=== PATIENT | male | born 1950 | race Caucasian/White ===

== ENCOUNTER 2021-04-13 10:32 | Outpatient (CLI) | payer OTHER, SELFPAY ==
--- NOTE | ~2021-04-13 | XR_ITS ---
EXAMINATION: XR cystogram EXAM DATE: 04/13/2021 11:27 INDICATION: Malignant Neoplasm Of Prostate, Post-Op 3 Wks. Patient had outside study one week ago. TECHNIQUE: Fluoroscopy used during XR cystogram performed by Dr. Ze Castaneda Radiologist was not p resent for the imaging or procedure. Total fluoroscopic time of 0.1. The DAP for this procedure was 15.6 mGym2. A total of 34 images sent to PACS from the exam. There is no prior study for compariso n. FINDINGS: Manager Of Pmo image demonstrates corpora implants, Chou catheter, right-sided double-J ureteral s tent. Patient tolerated approximately 150 mL of Omnipaque saline distention. Upon infusing contrast, there is immediate extraluminal contrast contained in a pocket below the bladder base, most likely th e prostatectomy surgical bed. No evidence of free intraperitoneal contrast or pocket extravasating ou t of this contained region. Contrast refluxed up the right ureter as would be expected for functionin g stent. I discussed these findings with patient at conclusion of exam. IMPRESSION: Contained extraluminal contrast likely in prostatectomy bed; correlate with previous imag ing. Reviewed, dictated and finalized at location A. IMPRESSION: Contained extraluminal contrast likely in prostatectomy bed; correl ate with previous imaging.
== END 2021-04-13 10:33 | disposition home or self-care (01) ==
PROVIDERS: PCP Student in an Organized Health Care Education/Training Program; Visit Provider Urology
DX: C61 Malignant neoplasm of prostate (principal)
CPT/HCPCS: 51600; 74430; Q9967

== ENCOUNTER 2021-06-02 14:58 | Emergency (ER) | payer OTHER, SELFPAY ==
[2021-06-02 15:08] VITALS: BP 152/68; PULSE 68; RESP 16; TEMP 37.1; O2SAT 99
--- NOTE | 2021-06-02 15:41 | ED.GENADULT ---
HPI - General Adult General Chief complaint: Abdominal Pain Stated complaint: Constipation Source: patient and RN notes reviewed Limitations: no limitations History of Present Illness HPI narrative: The patient, on several medications, presents with constipation. Patient states that he was unwell with a bout of diarrhea on Thanksgiving of 4-5 bowel movements. Since then he has not had a bowel movement despite overnight using OTC preparations like fleets enema, Colace, MiraLAX. His abdominal history is remarkable that he had prior noncontributory colonoscopies, a prostatectomy in , and is on no recent antibiotics, pain medicines. No fever, vomiting, abdominal pain, and he passes scant gas. Patient declines hospital referral for blood test, imaging; discussed using [place] prep protocol with MiraLAX and Gatorade but at half dose- if he is not better in a day or 2 [after his recent interventions]. Related Data Home Medications Medication Instructions Recorded Confirmed atenolol 100 mg PO DAILY 06/02/21 06/02/21 hydrochlorothiazide 12.5 mg PO DAILY 06/02/21 06/02/21 pravastatin 20 mg PO DAILY 06/02/21 06/02/21 quinapril 40 mg PO DAILY 06/02/21 06/02/21 Allergies Allergy/AdvReac Type Severity Reaction Status Date / Time No Known Allergies Allergy Uncoded 04/04/19 10:16 Review of Systems Review of Systems: General/Constitutional: No weight loss,fever Eyes: N0: Redness,discharge Ears/Nose/Throat: No: Epistaxis,ear discharge Respiratory: Denies: Hemoptysis Gastrointestinal: No Vomiting, Bleeding-rectal Skin: No Lumps, eruption Neurologic: No Focal Weakness,Sz Hematologic: Denies: Petechiae/Purpura Psychiatric: No: Suicida ideationl All Other Systems: Reviewed and Negative [facility] Social History Social History Smoking status: Never smoker Alcohol intake: current Comments At time of signature, agree with nursing past medical, surgical, social and family history. There is no relevant family history pertinent to the presenting complaint Exam Narrative: General Appearance: Well appearing, No distress EYE: PERRLA, Conjunctiva clear Ears: External ear normal Nose: Normal nose Mouth/Throat: Normal appearing, Normal lips Neck: Supple Respiratory: Airway patent, No respiratory distress Cardiovascular: RRR Abdomen: Soft, Non-tender, No massess, No organomegaly (no rebound/ surgical signs), Hypoactive bowel sounds Musculoskeletal: Full ROM Skin: Warm, Dry Neurological: A&O x3, CN II-X intact Psychiatric: Normal mood, Normal affect Course Vital Signs Vital signs: Vital Signs Temperature 98.7 F 06/02/21 15:08 Pulse Rate 68 06/02/21 15:08 Respiratory Rate 16 06/02/21 15:08 Blood Pressure 152/68 H 06/02/21 15:08 Pulse Oximetry 99 06/02/21 15:08 Temperature 98.7 F 06/02/21 15:08 Pulse Rate 68 06/02/21 15:08 Respiratory Rate 16 06/02/21 15:08 Blood Pressure 152/68 H 06/02/21 15:08 Pulse Oximetry 99 06/02/21 15:08 Medical Decision Making Vital Signs Vital Signs: Vital Signs Temperature 98.7 F 06/02/21 15:08 Pulse Rate 68 06/02/21 15:08 Respiratory Rate 16 06/02/21 15:08 Blood Pressure 152/68 H 06/02/21 15:08 Pulse Oximetry 99 06/02/21 15:08 Temperature 98.7 F 06/02/21 15:08 Pulse Rate 68 06/02/21 15:08 Respiratory Rate 16 06/02/21 15:08 Blood Pressure 152/68 H 06/02/21 15:08 Pulse Oximetry 99 06/02/21 15:08 Discharge Plan Discharge Clinical Impression: Constipation Patient Disposition: Home, Self-Care Condition: Stable Instructions: Constipation (ED) Additional Instructions: Return if worsens per handout, try your prior colonoscopy prep routine but at half doses Consider taking a multivitamin Prescriptions: No Action atenolol 100 mg tablet 100 mg PO DAILY RF: 0 quinapril 40 mg tablet 40 mg PO DAILY RF: 0 pravastatin 20 mg tablet 20 mg PO DAILY RF: 0 hydrochlorothiazide 2
== END 2021-06-02 15:53 | disposition home or self-care (01) ==
PROVIDERS: Emergency Provider Emergency Medicine; PCP Student in an Organized Health Care Education/Training Program
DX: K59.00 Constipation, unspecified (principal)
CPT/HCPCS: 99211; G0463

== ENCOUNTER 2021-07-01 10:25 | Outpatient (CLI) | payer OTHER, SELFPAY ==
--- NOTE | ~2021-07-01 | MR_ITS ---
EXAMINATION: MR shoulder LT wo/w con DATE: 07/01/2021 11:59 INDICATION: Left shoulder pain with proximal left humeral lesion TECHNIQUE: Magnetic resonance imaging (MRI) of the left shoulder was performed without and with 20 mL Multihance intravenous contrast. Sequences included axial PD-weighted FS FSE, coronal oblique PD-tamie ghted FS FSE, coronal oblique T2-weighted FS FSE, sagittal PD-weighted FS FSE, sagittal T1-weighted S E, axial T1-weighted FS FSE and postcontrast axial, sagittal and coronal T1-weighted FS FSE. COMPARISON: None. FINDINGS: Coracoacromial arch: The acromion undersurface is curved in morphology (type II). Tiny subacromial spurs along the inferio r margin of the anterior acromion along the insertion of the otherwise normal coracoacromial ligament . There is widening of the acromioclavicular joint space which measures 8-9 mm in minimal width. Cons istent with a likely chronic acromioclavicular joint separation. The coracoclavicular ligament is nor mal. Rotator cuff: Mild supraspinatus and infraspinatus tendinopathy. There is a full-thickness tear extending AP across the anterior two thirds of the supraspinatus tendon. The portion of the tendon contributing to the c onjoined portion of the supraspinatus and infraspinatus tendons remains intact. The tear defect which overlies the apex of the humeral head measures approximately 1.8 cm medial collateral and 1.5 cm AP. There is a mild bursal sided tear measuring approximately 6 mm AP at the anterior middle facet footp late of the conjoined portion of the tendon which involves no greater than one third of the tendon th ickness. The teres minor tendon is normal. Minimal subscapularis tendinopathy without discrete tear. There is mild fatty atrophy of the supraspinatus muscle belly which demonstrates a decrease cross-sec tional area and flattened cephalad contracts the muscle belly at the supraspinatus fossa. There is al so mild to moderate fatty atrophy of the teres minor muscle belly. Biceps tendon, glenoid labrum and glenohumeral cartilage: Mild tendinopathy of the intra-articular long head biceps tendon without discrete tear. Tear involvin g the chondral labral junction and base of the labrum beginning superiorly at the 11:30 position of t he posterosuperior glenoid labrum and extending caudally along the posterior to the 6:00 position of the inferior labrum. Remainder of the cartilage along the glenoid and humeral head is normal. Fluid: Small left glenohumeral joint effusion with proportional extension of fluid into the long head biceps tendon sheath as well as into the subacromial/subdeltoid bursa through the full-thickness rotator cu ff tear. No loose osteochondral bodies. Bones: 2.1 x 1.1 x 1.7 cm T2 hyperintense lesion with linear low signal intensity sclerotic margins as evide nced on prior radiographs likely benign based on the nonaggressive appearance on the plain radiograph s. There is no significant internal enhancement in the lesion with thin linear enhancement at the per iphery which may be related to small vessels. Given the location and appearance the differential alth ough likelihood would include bone infarct, enchondroma, aneurysmal bone cyst, fibrous dysplasia or s ome combination thereof. Bone marrow signal is otherwise normal. No fracture or other pathologic huyen ow replacing process. IMPRESSION: 1. Mild supraspinatus tendinopathy with small to moderate-sized full-thickness tear involving the cri tical zone of the anterior two thirds of the supraspinatus tendon which is likely chronic given the m ild associated muscular atrophy. 2. Nonspecific mild to moderate fatty atrophy of the teres minor muscle belly without evident tendon tear which of indeterminate etiology potentially related to denervation, disuse or [place] Nair s yndrome. 3. Tear of the posterior half of the glenoid labrum beginning at the nitish
[2021-07-01 11:13] LABS: Estimated Glomerular Filt Rate > 60
== END 2021-07-01 10:26 | disposition home or self-care (01) ==
LOC: ANHIMG 10:35
PROVIDERS: PCP Student in an Organized Health Care Education/Training Program; Visit Provider Orthopaedic Surgery
DX: S43.432A Superior glenoid labrum lesion of left shoulder, initial encounter (principal); X58.XXXA Exposure to other specified factors, initial encounter
CPT/HCPCS: 73223; A9577

== ENCOUNTER 2021-09-11 07:53 | Outpatient (CLI) | payer OTHER, SELFPAY ==
[2021-09-11 10:04] LABS: Potassium 4.2 mmol/L (3.4-5.0)
[2021-09-11 10:09] LABS: Anion Gap 7 mmol/L (8-16); Blood Urea Nitrogen 19 mg/dL (9-20); Calcium 9.3 mg/dL (8.4-10.2); Carbon Dioxide 30 mmol/L (22-30); Chloride 99 mmol/L (98-107); Estimated Glomerular Filt Rate > 60; Glucose 96 mg/dL (65-110); Sodium 136 mmol/L (137-145)
== END 2021-09-11 07:54 | disposition home or self-care (01) ==
LOC: ANHSURGERY 07:58
PROVIDERS: Anesthesiology; PCP Student in an Organized Health Care Education/Training Program; Visit Provider Orthopaedic Surgery
DX: Z01.818 Encounter for other preprocedural examination (principal); I10 Essential (primary) hypertension
CPT/HCPCS: 36415; 80048

== ENCOUNTER 2021-09-15 00:47 | Day surgery (SDC) | payer OTHER, SELFPAY ==
[2021-09-09 13:02] VITALS: BMI 27.1
--- NOTE | 2021-09-09 13:08 | PC.NURSE ---
Report to the Outpatient Waiting Room, entrance under the green pavilion located off [facility], at time __0830 on date __09/15/21 . OR Time: __1030 . - You and your visitor will be asked a series of questions to screen for COVID 19 for your protection. - A mask is required within the hospital. Preoperative COVID Testing Requirements: No COVID Test needed if: (proof is required; if not received patient will have Rapid Test prior to entry) - Patient has received COVID Vaccine at least 14 days prior to procedure date or - Patient has positive COVID test result within last 90 days of surgery date. COVID Test needed if above criteria is not met If not COVID vaccinated a COVID test must be conducted within 72 hours of surgery and patient is asked to isolate self from time of testing until procedure. You will go to the [facility] for your COVID testing. The [facility] is located at the corner of [address] from [facility]. You will only be called if COVID results are positive and your surgeon may reschedule your elective surgery date. Patients may have clear liquids (water, carbonated beverages, clear teas, apple juice) until 3 hours prior to surgery with a maximum of 20 ounces. - No food from midnight until time of surgery Take the following medications with a SIP of water the morning of surgery: _ATENOLOL Medications to discontinue per physician ___NONE Date to take last dose Please no make-up, nail indonesian, hairspray, perfume, deodorant, or body powder the day of surgery. No jewelry (including any body piercings) or valuables the day of surgery, leave them at home. Please take a shower or bath the night before, or the morning of, surgery with an antibacterial soap. Wear comfortable, loose fitting clothing. Children are encouraged to wear pajamas. - Jewelry must be removed prior to entering the operating room. Rings and piercings that are not removed may be cut off. - The hospital will not accept responsibility for valuables. - Please leave all valuables, including medications, at home the day of surgery. If you are going home after surgery, a licensed distribution driver must drive you home. - NO public transportation without another adult. - We recommend that an adult stay with you for 24 hours following discharge. - We also recommend that you do not drive, make important decision, drink alcoholic beverages, or take any drugs that were not prescribed by your health care provider for at least 24 hours after your discharge time. For Pediatric surgeries, we recommend two adults accompany the child home (only one inside the building at this time). One visitor will be allowed to accompany the patient into the hospital. Patients visitor will be instructed to remain with patient at all times or leave the building. We will allow the visitor to come back to the postoperative area when patient is ready. Follow any additional instructions given to you from your surgeon. Telephone instructions given to __PATIENT and asked if any additional questions and then verbalized understanding. Patient advised to call surgeon office or pre surgery nurse liaison [phone] if any additional questions.
[2021-09-15] VITALS (7 sets, daily range): BP systolic 134–157; BP diastolic 73–88; PULSE 51–64; RESP 14–20; TEMP 36.1–36.4; O2SAT 93–100
--- NOTE | 2021-09-15 06:45 | WPDANESEPPF ---
Anes - Initial Pre Proc Eval Procedure: Operation Date: 09/15/21 07:30 Proposed Procedures p Left Shoulder Arthroscopy, with Debridement - Demian Funes MD Date/Time: 09/15/21 06:45 Surgeon: Demian Funes MD Pre Op Diagnosis: left rotator cuff deficiency Patient Data Age: 70 Gender: M Height: 1.98 m Weight: 106.6 kg Allergies Allergy/AdvReac Type Severity Reaction Status Date / Time tree nut AdvReac Mild hives Verified 09/09/21 13:05 Home Medications Medication Instructions Recorded Confirmed Type atenolol 100 mg PO DAILY 06/02/21 09/09/21 History hydrochlorothiazide 12.5 mg PO DAILY 06/02/21 09/09/21 History pravastatin 20 mg PO DAILY 06/02/21 09/09/21 History quinapril 40 mg PO DAILY 06/02/21 09/09/21 History Patient hx anesthesia problems: none Family hx anesthesia problems: none Results Review: All pre-operative results and documents have been reviewed as part of the pre-operative evaluation. [facility] Past Medical History Medical History (Updated 09/15/21 @ 06:46 by Andrea Aparicio MD) HTN (hypertension) Hyperlipidemia Left rotator cuff tear Left shoulder pain Overweight Surgical History Surgical History History of cystoscopy History of hip surgery abductor repair History of prostatectomy 2020 History of total knee replacement Family History Family History Other Cerebrovascular accident Diabetes mellitus Lung cancer Social History Social History Smoking status: Never smoker Alcohol intake: current Drinks per week: 2 Substance use: never Living arrangements: with family Gender identity (if verbalized by the patient): Male Spiritual care concerns: No Anes - Eval Final PreProcedure Day of Procedure 09/15/21 06:45 Patient weight: overweight Heart: regular rate and rhythm Lungs: clear to auscultation Airway: Mallampati scale class II Neurological: alert and oriented Last oral intake: >/= 8 hours ASA classification: III Emergent: no Anesthetic plan: proceed Anesthesia type and monitoring: general ETT and standard monitoring Results Review: All pre-operative results and documents have been reviewed as part of the pre-operative evaluation. Informed Consent: The patient's anesthetic plan and its attendant risks and benefits were discussed with the patient/family/POA. Questions were solicited and answers provided to the satisfaction of the patient/family/POA.
[2021-09-15] MEDS: LACTATED RINGERS 1,000 ML 30 ML IV CONT ×2 (06:47→08:43)
[2021-09-15] MEDS: ACETAMINOPHEN 500 MG TABLET 1000 MG PO (06:48)
[2021-09-15] MEDS: KETOROLAC 15 MG/ML VIAL (*BKC) IV PUSH (06:50)
--- NOTE | 2021-09-15 07:06 | WPDHPUPDATE1 ---
History and Physical Update Update Date/Time: 09/15/21 07:06 History and Physical has been reviewed, including an updated exam of the patient. There are NO changes in the patient's condition. Risks, benefits, and alternatives have been discussed and questions answered. Patient agrees to proceed with procedure.
--- NOTE | 2021-09-15 07:21 | WPDANESPNB ---
Anes - Peripheral Nerve Block Date/Time: 09/15/21 07:21 I have discussed with the patient/family/POA the placement of a peripheral nerve block for post-operative pain management, including associated risks, benefits, complications, and side effects. Alternative methods of post-operative analgesia were detailed. Questions were solicited and answers provided to the satisfaction of the patient/family/POA. Time-Out: A pre-procedural Time-Out was completed immediately before starting the procedure and confirmed: Patient Identification, Site, Procedure, Patient Position and the Availability of Requisite Equipment. Clinical Indications: Acute post-operative pain management requested by the operative surgeon. Nerve Block Insertion Note Anes-nerve block: interscalene left Skin prep: chlorhexidine Needle: 22 gauge, stimulating, insulated echogenic needle. Needle length: 50 mm Technique: ultrasound Injectate: bupivacaine 0.5% with epi 5 mcg/ml (no epi) and dexamethasone (mg) (8) Observations: tolerated well Complications: none Procedure start time:: 714 Procedure end time:: 721
--- NOTE | 2021-09-15 08:41 | P.OP_ITS ---
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 In the preop holding area the anesthesia team performed a left upper extremity block. He was then taken to the operating, transferred to the OR table and after general anesthetic induction and intubation placed into the semi beach chair position in the usual manner for a left shoulder procedure. His head was secured taking care to neither rotate or extend the head neck. The right upper extremity was prepped and draped free in the usual sterile fashion. 30 cc of 1:100,000 epinephrine and saline solution was injected into the subacromial space. 10 cc of 0.25% Marcaine and epinephrine solution was injected in the area of the portals. Posterior portal was established and under direct visualization anterior outflow was created. There was clear deficiency of the supra and infraspinatus tendons with a fair amount of thickened and inflamed bursal tissue. This was extensively debrided with the shaver and the ArthroCare Wand. Arthrocare around was also used for hemostasis. Articular cartilage of the humeral head and glenoid showed areas of fraying and there was extensive degeneration of the glenoid labrum. Biceps anchor was noted to be intact. The entire surgical area was irrigated with saline solution and the equipment was removed. Portals were closed with three 0 nylon suture and sterile dressings applied. He tolerated the procedure well. He was awakened, extubated and taken to recovery area in stable condition. There were no known intraoperative complications. Estimated blood loss was negligible. He received perioperative antibiotics. Estimated Blood Loss 2 Drains No Packing No Pathology None sent Complications No immediate complications Condition Stable Disposition PACU
== END 2021-09-15 10:20 | disposition home or self-care (01) ==
PROVIDERS: PCP Student in an Organized Health Care Education/Training Program; Visit Provider Orthopaedic Surgery
PROC: (CPT 29805; principal; 2021-09-15 07:30)
DX: M25.812 Other specified joint disorders, left shoulder (principal); M25.512 Pain in left shoulder; M19.012 Primary osteoarthritis, left shoulder; G89.18 Other acute postprocedural pain; I10 Essential (primary) hypertension; E78.5 Hyperlipidemia, unspecified
CPT/HCPCS: 29823; 64415; 36415; 80048; A4565; A9270; J0171; J0330; J0690; J1100; J1885; J2250; J2405; J2704; J3010; J7120

== ENCOUNTER 2021-10-15 10:00 | Outpatient (RCR) | payer OTHER, SELFPAY ==
[2021-09-17 08:56] VITALS: BP_SYST 170
--- NOTE | 2021-09-17 10:17 | PTOPEVAL ---
Thank you for referring Jose Saini to [facility].? The patient is scheduled to be seen for therapy?2 x/week for 5 weeks. Please review, sign, date and return this plan of care SRINIVAS. I agree with and certify that the following plan of care is medically necessary. Referring Physician Date Attending Provider: Demian Funes MD Problem Diagnosis left rotator cuff tear Onset years Additional Evaluation Detail MRI: Mild supraspinatus tendinopathy with small to moderate-sized full-thickness tear involving the critical zone of the anterior two thirds of the supraspinatus tendon which is likely chronic given the mild associated muscular atrophy. 2. Nonspecific mild to moderate fatty atrophy of the teres minor muscle belly without evident tendon tear which of indeterminate etiology potentially related to denervation, disuse or [place] Nair syndrome. 3. Tear of the posterior half of the glenoid labrum beginning at the chondral labral junction. 4. 2.1 x 1.1 x 1.7 cm likely benign lesion with narrow zone of transition with thin sclerotic rim and without nodular enhancing soft tissue component in the left humeral head with differential as detailed above. Subjective Information He is s/p arthroscopic Query Text:As Reported By Patient/ debridement surgery left Family shoulder 09/15/21. He reports years of left shoulder pain with progression of symptoms after Jun 2021. Denies any limitations with dramatic reader or ADL's. Difficulty with lifting heavy objects. He reports the pain in his shoulder is mostly from the surgery. He reports difficulty with sleeping and finding a comfortable place
[2021-10-15 10:01] VITALS: BP_SYST 175
--- NOTE | 2021-10-15 13:48 | PCPTNOTE ---
Admitting Provider: Attending Provider: Demian Funes MD Patient:Jose Saini Date of :1950 Physical Therapy Discharge Summary Pt referred to therapy s/p arthroscopic surgery left shoulder on 09/15/21. He has attended 9 therapy visits to address his post-op limitations. As a result of skilled therapy services he demonstrates improved UE function, improved ROM to WNL and strength to 3/5 to 5/5. He is performing normal daily task and recreational activities. He cont to demonstrates weakness of shoulder ext rotation consistent with internal derangement of RTC. Shoulder Pain and Disability Index (SPADI): 24% impaired at eval and update 23% impaired. Jose has been instructed in a HEP and demonstrates understanding and compliance. He has achieved/partially achieved his therapy goals at this time. Will DC skilled therapy services with recommendations to cont with HEP. Thank you for referring this patient to [facility]. Please review, sign, date and return this discharge summary SRINIVAS. I have been updated about the patient's current status and I agree with discharge from the above service at this time. Referring Physician Date
== END 2021-10-15 14:16 | disposition home or self-care (01) ==
LOC: ANHPT 10:00
PROVIDERS: PCP Student in an Organized Health Care Education/Training Program; Visit Provider Orthopaedic Surgery
DX: M75.122 Complete rotator cuff tear or rupture of left shoulder, not specified as traumatic (principal)
CPT/HCPCS: 97110; 97112; 97140; 97162

== ENCOUNTER 2023-12-26 11:24 | Outpatient (CLI) | payer OTHER, SELFPAY ==
--- NOTE | ~2023-12-26 | PE_ITS ---
EXAMINATION: PET_PETPSMAST_PT DATE: 12/26/2023 14:27 INDICATION: Prostate cancer TECHNIQUE: 4.574 mCi of Locametz Ga-68([id number]) was administered i.v. Low dose computed joana ography (CT) images were acquired from the base of the brain to the base of the brain to the proximal thighs for attenuation correction and anatomic localization. Positron emission tomography (PET) imag es were acquired in the same distribution beginning 87 minutes after injection. Images including fuse d PET/CT images were reconstructed in axial, coronal, and sagittal planes. Automated exposure control technique was employed. The dose-length product was 1315.09mGy-cm. COMPARISON: None FINDINGS: Head/neck: Typical pattern of symmetric physiologic increased activity in the lacrimal, parotid and submandibula r glands as well as along the mucosa of the nasal and oral cavities, pharynx and hypopharynx. No path ologically enlarged cervical lymphadenopathy or suspicious foci of increased uptake in the visualized head or neck. Chest: Dependent and basilar atelectasis in the bilateral lungs. No suspicious pulmonary nodules or pleural effusion. Heart size is normal. Atherosclerotic coronary artery calcific lesion. No pericardial effus ion. Thoracic aorta is normal in caliber. Small sliding-type hiatal hernia. No pathologically enlarge d or PSMA avid thoracic lymphadenopathy. Abdomen/pelvis/proximal thighs: Physiologic renal accumulation and excretion of activity in the kidneys, bladder and along portions o f ureters. Status post prostatectomy without evident nodular soft tissue density were abnormal PSMA a ctivity peripheral to the bladder urine activity to suggest recurrent disease. Photopenic defects ass ociated with bilateral low-attenuation renal cysts the largest on the right measuring 5.3 cm. Normal degree and slightly heterogenous pattern of increased uptake throughout the liver and spleen without radiologic correlate or dominant PSMA avid lesion. The gallbladder, pancreas and bilateral adrenal gl ands are normal. Moderate uptake scattered throughout the bowels with typical duodenal and proximal j ejunal predominance and without radiologic correlate, also likely physiologic. Penile implant with ca theter passage to the left inguinal canal and reservoir in the anteroinferior left pelvis. There is a 1.7 x 1.2 cm PSMA avid left external iliac chain lymph node located near the level of the iliac bifu rcation with maximal SUV of 12.4. No other abnormal foci of increased uptake or pathologically enlarg ed lymphadenopathy in the abdomen, pelvis or proximal thighs. Musculoskeletal: Severe spondylosis throughout the spine with bridging osteophytes at multiple levels consistent with diffuse idiopathic skeletal hyperostosis (DISH). 9 mm densely sclerotic lesion with smooth margins at the T7 vertebral body with minimal PSMA activity with maximal SUV of 1.6. There is no evident correl ate on the lateral chest radiograph from 01/28/2015. There is a second densely sclerotic lesion with s piculated margins at the right pubic body which without evident PSMA uptake which can be seen dating back to 03/07/2018 most likely a bone island. 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 There are coupl e suture anchors at the greater trochanter of the proximal right femur. No other suspicious lytic, bl astic or abnormally PSMA avid bone lesions. IMPRESSION: 1. Increased PSMA activity at a mildly enlarged left common iliac chain lymph node consistent with me tastatic disease. 2. 9 mm sclerotic lesion at the T7 vertebral body with minimal PSMA activity. The appearance with smo oth peripheral margins, absence of correlate on imaging from 9 years prior and slight increased PSMA uptake does raise concern for metastatic disease. Correlate with any intervening outside imaging.
== END 2023-12-26 11:25 | disposition home or self-care (01) ==
PROVIDERS: PCP Student in an Organized Health Care Education/Training Program; Visit Provider Urology
DX: C61 Malignant neoplasm of prostate (principal)
CPT/HCPCS: 78815; A9596

== ENCOUNTER 2024-01-13 12:36 | Outpatient (CLI) | payer OTHER, SELFPAY ==
--- NOTE | ~2024-01-13 | DEXA_ITS ---
Bone Density Report Name: JENNY CHUN Age: 73 Sex: Male Ethnicity: White Date of : 1950 Indication: screening for osteoporosis; height loss; cancer; Referring Provider: KILLIAN JO Study: Bone densitometry was performed. Exam Date: January 13, 2024 Accession number: [id number] Bone Density: Region BMD T-score Z-score Classification AP Spine(L1, L2, L3) 0.989 -0.7 0.3 Normal Femoral Neck (Left) 0.647 -2.1 -0.7 Osteopenia Total Hip (Left) 0.690 -2.3 -1.4 Osteopenia World Health Organization criteria for BMD impression classify patients as: Normal (T-score at or above -1.0), Osteopenia (T-score between -1.0 and -2.5), or Osteoporosis (T-score at or below -2.5). 10-year Fracture Risk(1): Major Osteoporotic Fracture 8.5% Hip Fracture 3.0% Reported Risk Factors: [place] (), Neck BMD=0.647, BMI=30.9 (1) FRAX(R) Version 3.08. Fracture probability calculated for an untreated patient. Fracture probability may be lower if the patient has received treatment. Clinical Information Provided by Patient: Has the following medical conditions: Cancer Patient maximum height was 78 No regular weight bearing exercise Drinks caffeinated beverages Impression: The patient has low bone mass, based on the Left Total Hip T-score. The patient has an estimated ten-year risk of hip fracture of 3% and an estimated ten-year risk of major fracture of 8.5%, based on the WHO FRAX algorithm. Discussion: BONE DENSITY IS LOW AT ONE OR MORE SKELETAL SITES. THE PATIENT'S BMD AND CLINICAL RISK FACTORS CONTRIBUTE TO THIS PATIENT'S INCREASED RISK OF FRACTURE. This patient's lowest T-score is low at one or more skeletal sites. It meets the World Health Organization's (WHO) criteria for ?low bone mass? (T-score between -1.0 and -2.5). The patient's 10-year risk of hip fracture as calculated by FRAX exceeds the threshold where pharmacological therapy is recommended by the National Osteoporosis Foundation (NOF). However, all treatment decisions require clinical judgment and consideration of individual patient factors, including patient preferences, comorbidities, previous drug use, risk factors not captured in the FRAX model (e.g., frailty, falls, vitamin D deficiency, increased bone turnover, interval significant decline in bone density) and possible under or overestimation of fracture risk by FRAX. The patient should follow a healthful lifestyle (good nutrition with adequate calcium and vitamin D, and appropriate weight-bearing exercise). Follow-Up: Consider repeating this study in 2 years to reassess this patient's status, or sooner if there is some new clinical indication. Reported by: SARKIS on 01/13/2024 1:16:00 PM. Reviewed, dictated and finalized at location A. SARTHAK
== END 2024-01-13 12:37 | disposition home or self-care (01) ==
PROVIDERS: PCP Student in an Organized Health Care Education/Training Program; Visit Provider Urology
DX: M81.0 Age-related osteoporosis without current pathological fracture (principal); M85.852 Other specified disorders of bone density and structure, left thigh
CPT/HCPCS: 77080

== ENCOUNTER 2024-01-26 09:28 | Outpatient (CLI) | payer OTHER, SELFPAY ==
--- NOTE | ~2024-01-26 | MR_ITS ---
EXAMINATION: MR pelvis wo/w con DATE: 01/26/2024 11:14 INDICATION: Prostate cancer TECHNIQUE: Magnetic resonance imaging (MRI) of the pelvis was performed without and with 15 mL Multih ance intravenous contrast. Fullfield sequences of the pelvis included axial and coronal T2-weighted S S FSE, axial, sagittal and coronal 2D FIESTA, axial 2D FIESTA FS, axial SSFSE-IR KAYLA, axial dual-echo T1-weighted FSPGR, axial and coronal T1 weighted LAVA, 3D axial T2 Cube, axial diffusion-weighted SE with apparent diffusion coefficient (ADC) maps. Postcontrast sequences included a time course axial T1-weighted LAVA and sagittal and coronal T1-weighted LAVA. COMPARISON: PSMA PET dated 12/26/2023 FINDINGS: Postoperative change of prior prostatectomy. No nodular soft tissue density at the prostatectomy bed to suggest residual/locally recurrent disease. There is a penile prosthesis in expected position with reservoir in the anterior inferior left pelvis at the entrance to the inguinal canal with catheter e xtending to the inguinal canal. Mild trabeculated contour to the bladder mucosa which may be related to chronic outlet obstruction from the since resected prostate. There is been interval decrease in si ze of the previously identified PSMA avid left external iliac lymph node which measured 1.8 x 1.3 cm currently measuring 1.3 x 0.7 cm. This is located along the posterior margin of the reservoir for the penile prosthesis. No other pathologically enlarged pelvic or inguinal lymphadenopathy. Several diverticula along the sigmoid colon without adjacent comparison to suggest diverticulitis. Sm all bone island at the right pubic body which is without abnormal FDG uptake at the time of the prior PET study. Suture anchors at the anterior segment of the right greater trochanter likely for right g luteus minimus tendon repair. This likely chronic tear of the right gluteus medius tendon on the mode rate asymmetric fatty atrophy of the right gluteus medius muscle. Severe lumbar spondylosis there are couple T2 hyperintense nonenhancing cyst at the left kidney. IMPRESSION: 1. Interval decrease in size of a previously enlarged and PSMA avid left external iliac lymph node co nsistent with response to treatment of metastatic prostate cancer. No other lesions suspicious for me tastatic disease identified. 2. Status post prostatectomy with no evident residual or locally recurrent disease at the prostatecto my bed. Reviewed, dictated and finalized at location A. IMPRESSION: 1. Interval decrease in size of a previously enlarged and PSMA avid left training and development assistant al iliac lymph node consistent with response to treatment of metastatic prostat e cancer. No other lesions suspicious for metastatic disease identified. 2. Status post prostatectomy with no evident residual or locally recurrent dise ase at the prostatectomy bed.
== END 2024-01-26 09:29 | disposition home or self-care (01) ==
PROVIDERS: PCP Student in an Organized Health Care Education/Training Program; Visit Provider Radiology Radiation Oncology
DX: C61 Malignant neoplasm of prostate (principal)
CPT/HCPCS: 72197; A9577